=== PATIENT | female | born 1950 | race Caucasian/White ===

== ENCOUNTER 2021-04-20 16:53 | Inpatient (IN) ==
[2021-04-20] MEDS ORDERED: Ipratropium/Albuterol Neb 3 ML IH ONE ×2 (17:34→17:41)
[2021-04-20] MEDS ORDERED: 0.9 % Sodium Chloride 1,000 ML IV ONE (17:34)
[2021-04-20] MEDS ORDERED: MethylPREDNISolone 40 MG/ML VIAL IVP ONE (17:35)
[2021-04-20] MEDS ORDERED: methylPREDNISolone 125 MG/2 ML VIAL IVP ONE (17:42)
[2021-04-20 18:26] LABS: Basophils % 0.2 %; Eosinophils % 0.2 %; Hematocrit 25.7 % (35.3-44.9); Hemoglobin 7.9 g/dL (11.5-15.4); Immature Granulocytes % 2.9 % (0-4); Lymphocytes # 1.2 K/mcL (0.6-4.6); Mean Corpuscular HGB Conc 30.7 g/dL (31.6-35.5); Mean Corpuscular Hemoglobin 27.6 pg (28.0-33.3); Mean Corpuscular Volume 89.9 fL (83.0-100.0); Mean Platelet Volume 10.6 fL (9.4-12.4); Monocytes % 7.6 %; Neutrophils # 10.6 K/mcL (1.6-8.9); Platelet Count 384 K/mcL (140-400); Red Blood Count 2.86 M/mcL (3.82-4.97); Segmented Neutrophils % 80.1 %; White Blood Count 13.2 K/mcL (4.3-11.1)
[2021-04-20 18:45] LABS: BUN/Creatinine Ratio 17 (6-26); Blood Urea Nitrogen 14 mg/dL (8-23); Calcium 9.2 mg/dL (8.6-10.3); Carbon Dioxide 26 mEq/L (23-29); Chloride 97 mEq/L (98-107); Glucose 144 mg/dL (70-105); Osmolality,Calculated 273 (280-300); Potassium 3.8 mEq/L (3.5-5.1); Sodium 130 mEq/L (136-145); eGFR For African Americans > 60 (> 60); eGFR For Non-African Americans > 60 (> 60)
[2021-04-20 18:47] LABS: Troponin I 0.05 ng/mL (< 0.04)
[2021-04-20] MEDS ORDERED: Isovue-370 500 ML BOTTLE IVP ONE (18:59)
[2021-04-20] MEDS ORDERED: Azithromycin 500 MG in 0.9 % Sodium Chloride 250 ML IVPB ONE (19:00)
[2021-04-20] MEDS ORDERED: cefTRIAXone 1,000 MG in 0.9 % Sodium Chloride Mini Bag 100 ML IVPB ONE (19:00)
[2021-04-20] MEDS ORDERED: *HR* Heparin 5,000 UNIT/ML VIAL IVP ONE (20:57)
[2021-04-20] MEDS ORDERED: *HR* Heparin 5,000 UNIT/ML VIAL IVP PRN ×2 (20:57)
[2021-04-20] MEDS ORDERED: Heparin 25,000UNIT/250ML 1/2NS 25,000 UNIT/250 ML IV.SOLN IVC SCH (21:00)
[2021-04-20 21:45] LABS: Heparin anti-factor XA UFH < 0.04 IU/mL (0.30-0.70)
[2021-04-20 21:46] LABS: INR 1.4
[2021-04-21] MEDS ORDERED: Naloxone 0.4 MG/ML INJ IVP PRN (00:06)
[2021-04-21 02:04] LABS: Hematocrit 24.1 % (35.3-44.9); Hemoglobin 7.6 g/dL (11.5-15.4); Mean Corpuscular HGB Conc 31.5 g/dL (31.6-35.5); Mean Corpuscular Hemoglobin 28.3 pg (28.0-33.3); Mean Corpuscular Volume 89.6 fL (83.0-100.0); Mean Platelet Volume 10.9 fL (9.4-12.4); Platelet Count 367 K/mcL (140-400); Red Blood Count 2.69 M/mcL (3.82-4.97); White Blood Count 14.2 K/mcL (4.3-11.1)
[2021-04-21] MEDS ORDERED: Ipratropium/Albuterol Neb 3 ML IH PRN (02:38)
[2021-04-21 02:51] LABS: Troponin I 0.04 ng/mL (< 0.04)
[2021-04-21] MEDS ORDERED: Perflutren Lipid Microsphere 1.3 ML in 0.9 % Sodium Chloride 8.7 ML IVP PRN (03:19)
[2021-04-21] MEDS: 0.9 % Sodium Chloride 1,000 ML IVC SCH ×2 (05:54→20:23)
[2021-04-21] MEDS ORDERED: Azithromycin 500 MG in 0.9 % Sodium Chloride 250 ML IVPB SCH (09:00)
[2021-04-21] MEDS ORDERED: cefTRIAXone 1,000 MG in Water for inj. (sterile) 10 ML IVP SCH (09:00)
[2021-04-21] MEDS ORDERED: predniSONE 20 MG TABLET PO SCH (09:00)
[2021-04-21] MEDS ORDERED: *HR* LORazepam 1 MG TABLET PO PRN (14:41)
[2021-04-21] MEDS: Gabapentin 100 MG CAPSULE PO SCH (20:23)
[2021-04-21] MEDS: Cefdinir 300 MG CAPSULE PO SCH (20:23)
[2021-04-21] MEDS: lamoTRIgine 100 MG TABLET PO SCH (20:23)
[2021-04-21] MEDS ORDERED: QUEtiapine Fumarate 300 MG TABLET PO SCH (21:00)
[2021-04-22] MEDS: 0.9 % Sodium Chloride 1,000 ML IVC SCH ×2 (05:51→12:21)
[2021-04-22 06:47] LABS: Hemoglobin 7.5 g/dL (11.5-15.4); Mean Corpuscular HGB Conc 31.3 g/dL (31.6-35.5); Mean Corpuscular Hemoglobin 27.9 pg (28.0-33.3); Mean Corpuscular Volume 89.2 fL (83.0-100.0); Mean Platelet Volume 10.2 fL (9.4-12.4); Platelet Count 402 K/mcL (140-400); Red Blood Count 2.69 M/mcL (3.82-4.97); Red Cell Distribution Width 15.2 % (11.5-14.5); White Blood Count 15.2 K/mcL (4.3-11.1)
[2021-04-22] MEDS ORDERED: Azithromycin 250 MG TABLET PO SCH (09:00)
[2021-04-22] MEDS ORDERED: lamoTRIgine 100 MG TABLET PO SCH (09:00)
[2021-04-22] MEDS: Gabapentin 100 MG CAPSULE PO SCH ×2 (12:21→15:22)
[2021-04-22] MEDS: Cefdinir 300 MG CAPSULE PO SCH (12:22)
[2021-04-22] MEDS: lamoTRIgine 100 MG TABLET PO SCH (12:23)
[2021-04-22 15:40] VITALS: BP 151/80
[2021-04-22 17:15] LABS: BUN/Creatinine Ratio 13 (6-26); Blood Urea Nitrogen 13 mg/dL (8-23); Calcium 8.3 mg/dL (8.6-10.3); Carbon Dioxide 18 mEq/L (23-29); Chloride 101 mEq/L (98-107); Glucose 242 mg/dL (70-105); Osmolality,Calculated 286 (280-300); Potassium 4.2 mEq/L (3.5-5.1); Sodium 134 mEq/L (136-145); eGFR For African Americans > 60 (> 60); eGFR For Non-African Americans 56 (> 60)
== END 2021-04-22 18:51 | disposition hospice, home (50) | DRG 871 ==
LOC: EMEROOARM 16:53 → 2NENU 16:53
PROVIDERS: ADMIT Internal Medicine; ATTEND Internal Medicine